=== PATIENT | male | born 1945 | race Caucasian/White ===

== ENCOUNTER → 2024-03-09 09:06 | Outpatient (CLI) | payer MEDICARE, BC, SELFPAY ==
--- NOTE | 2024-03-09 | DI.MRI.S_ITS ---
PROCEDURE: MR LUMBAR SPINE WO CON INDICATIONS: SPINAL STENOSIS, LUMBAR REGION TECHNIQUE: Noncontrast sagittal T1 spin echo and T2 fast echo, sagittal STIR, and T2 fast spin echo through the lumbar spine. In cases with scoliosis, additional coronal T2 fast spin echo may be performed. COMPARISON: Lumbosacral spine 03/01/2024. FINDINGS: Image quality: Excellent. 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 BILATERAL PARS DEFECTS AT L5. Bone Marrow: THERE IS INCREASED BONE MARROW SIGNAL THROUGHOUT THE L3 VERTEBRAL BODY, SUPERIOR ENDPLATE OF L4 AND INFERIOR ENDPLATE OF L2. NO ACUTE VERTEBRAL BODY COMPRESSION FRACTURES. Spinal Cord: CONUS MEDULLARIS TERMINATES AT THE T12 LEVEL. VISUALIZED CORD DEMONSTRATES NORMAL SIGNAL AND SIZE. Intervertebral discs: MULTILEVEL DISC DESICCATION AND DISC HEIGHT LOSS, WORSE AT L2-L3 AND L3-L4. NEAR COMPLETE HEIGHT LOSS OF THE INTERVERTEBRAL DISC AT L3-L4. Paraspinous Soft Tissues: No PARAVERTEBRAL MASSES. THERE IS A 3.6 CM T2 HYPERINTENSE MASS ARISING FROM THE INFERIOR POLE OF THE RIGHT KIDNEY. T12-L1: NO SPINAL CANAL STENOSIS OR FORAMINAL STENOSIS. LIGAMENTUM FLAVUM HYPERTROPHY AND BILATERAL FACET ARTHROPATHY. L1-L2: NO SPINAL CANAL STENOSIS OR FORAMINAL STENOSIS. LIGAMENTUM FLAVUM HYPERTROPHY AND BILATERAL FACET ARTHROPATHY. L2-L3: DORSAL DISC BULGE MILDLY EFFACES THE VENTRAL THECAL SAC. THERE IS SEVERE RIGHT FORAMINAL STENOSIS. MODERATE STENOSIS OF THE LEFT FORAMEN. LIGAMENTUM FLAVUM HYPERTROPHY AND BILATERAL FACET ARTHROPATHY. L3-L4: DORSAL DISC BULGE AND RIGHT SUBARTICULAR DISC PROTRUSION RESULTING IN MILD NARROWING OF SPINAL CANAL AND SEVERE STENOSIS OF THE RIGHT FORAMEN. MILD TO MODERATE STENOSIS OF THE LEFT FORAMEN. THERE IS LIGAMENTUM FLAVUM HYPERTROPHY AND BILATERAL FACET ARTHROPATHY. L4-L5: DORSAL DISC BULGE AND LIGAMENTUM FLAVUM HYPERTROPHY RESULT IN MILD NARROWING OF THE SPINAL CANAL. MILD TO MODERATE RIGHT FORAMINAL STENOSIS AND MODERATE TO SEVERE LEFT FORAMINAL STENOSIS. THERE IS BILATERAL FACET ARTHROPATHY. L5-S1: NO SIGNIFICANT SPINAL CANAL STENOSIS. MILD BILATERAL FORAMINAL NARROWING. THERE IS BILATERAL FACET ARTHROPATHY. IMPRESSION: 1. THERE IS A LARGE AMOUNT OF MULTILEVEL DEGENERATIVE DISC DISEASE THROUGHOUT THE LUMBAR SPINE DESCRIBED ABOVE. THE WORST LEVEL IS AT L3-L4 WHICH DEMONSTRATES SEVERE STENOSIS OF THE RIGHT FORAMEN. NO SIGNIFICANT SPINAL CANAL STENOSIS WITHIN THE LUMBAR SPINE. 2. THERE IS SEVERE DISC HEIGHT LOSS AT L2-L3 AND L3-L4 RESULTING IN BONE MARROW EDEMA THROUGHOUT THE L3 VERTEBRAL BODY, BONE MARROW EDEMA ALONG THE SUPERIOR ENDPLATE OF THE L4 VERTEBRAL BODY AND BONE MARROW EDEMA ALONG THE INFERIOR ENDPLATE OF THE L2 VERTEBRAL BODY. 3. 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 4. 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 BILATERAL PARS DEFECTS AT L5. 5. THERE IS A 3.6 CM CYSTIC MASS ARISING FROM THE INFERIOR POLE OF THE RIGHT KIDNEY. THIS MASS CAN BE FURTHER CHARACTERIZED WITH A RENAL ULTRASOUND OR MRI/CT RENAL PROTOCOL. Dictated by: Shiva Mosley M.D. on 03/09/2024 at 10:47 Approved by: Shiva Mosley M.D. on 03/09/2024 at 11:38
== END ==
PROVIDERS: Family Provider Internal Medicine; Referring Provider Physical Medicine & Rehabilitation Pain Medicine; Visit Provider Physical Medicine & Rehabilitation Pain Medicine
DX: M48.062 Spinal stenosis, lumbar region with neurogenic claudication (principal); M51.36 Other intervertebral disc degeneration, lumbar region; M47.816 Spondylosis without myelopathy or radiculopathy, lumbar region; M47.817 Spondylosis without myelopathy or radiculopathy, lumbosacral region; M41.9 Scoliosis, unspecified; N28.9 Disorder of kidney and ureter, unspecified
CPT/HCPCS: 72148

== ENCOUNTER → 2025-02-08 14:53 | Outpatient (CLI) | payer MEDICARE, BC, SELFPAY ==
--- NOTE | 2025-02-08 14:56 | DI.RAD.S_ITS ---
PROCEDURE: XR HAND RT MIN 3V INDICATIONS: RIGHT HAND PAIN TECHNIQUE: 3 views of the right hand acquired. COMPARISON: None. FINDINGS: Moderate degenerative changes at the radiocarpal, 1st carpal-metacarpal, 1st metacarpophalangeal and interphalangeal joints. Nonspecific calcifications are noted on 1 image posterior to the distal and of the 3rd middle phalanx may represent enthesophyte calcifications. Similarly there are small up to 5 millimeter calcifications adjacent to the radial styloid. No radiographic evidence of displaced fracture, dislocation or high attenuation soft tissue foreign body. IMPRESSION: Degenerative changes as discussed above. Heterotopic calcifications commonly enthesophyte or ligamentous calcifications. No radiographic evidence of displaced fracture. If symptoms persist or worsen, or there is high clinical suspicion of right hand/wrist abnormality, MRI could be performed. Dictated by: Bertrand Valentine M.D. on 02/08/2025 at 15:20 Approved by: Bertrand Valentine M.D. on 02/08/2025 at 15:25
== END ==
PROVIDERS: Family Provider Internal Medicine; Referring Provider Physical Medicine & Rehabilitation; Visit Provider Physical Medicine & Rehabilitation
DX: M19.031 Primary osteoarthritis, right wrist (principal)
CPT/HCPCS: 73130

== ENCOUNTER 2025-02-24 10:11 | Outpatient (CLI) | payer MEDICARE, BC, SELFPAY ==
[2025-02-24] VITALS (7 sets, daily range): BP systolic 153–203; BP diastolic 71–102; PULSE 64–73; RESP 11–16; TEMP 36.6; O2SAT 98–100
[2025-02-24] MEDS: MIDAZOLAM 2 MG/2 ML VIAL IV (11:36)
[2025-02-24] MEDS: DEXAMETHASONE 10 MG/ML VIAL INJ (11:44)
[2025-02-24] MEDS: BETAMETHASONE 30 MG/5 ML MDV 12 MG INJ (11:44)
[2025-02-24] MEDS: BUPIVACAINE 0.25% (PF) VIAL 2 ML INJ (11:45)
--- NOTE | 2025-02-24 12:00 | P.PCN_ITS ---
Date/Time/Diagnoses Date of procedure: 02/24/25 Time of procedure: 12:00 Pre-procedure diagnosis: 1. HNP WITH RADICULAR FEATURES, 2. MULTILEVEL CENTRAL STENOSIS, Post-procedure diagnosis: same Procedure Notes Procedure: 1. FLUOROSCOPICALLY GUIDED CONTRAST CONTROLLED INTERLAMINAR EPIDURAL STEROID INJECTION - L3/4 Indications: Antonio is referred for treatment of Bilateral Foraminal Stenosis L>R LE symptoms. Physician: Gian Sanchez Total Fluoroscopy time (seconds): 12 Total sedation minutes: 15 Complications: none Procedure in detail & Post-procedure care: FINDINGS Multilevel Central Spinal Stenosis with Nerve Root Compression DESCRIPTION OF PROCEDURE Fluoroscopically guided, contrast-controlled L3/4 translaminar epidural steroid injection. Following review of allergy and review of potential side effects and complications, including, but not necessarily limited to, infection, allergic reaction, local tissue breakdown, temporary as well as permanent nerve injury, paralysis, stroke and possible , the patient indicated that the patient understood and agreed to proceed. An informed consent document was signed by the patient, witnessed by a nurse, and placed in the patient's chart. Additionally, other treatment options including modalities, medications, and physical therapy were reviewed with the patient. After review of previous anaesthesic history and IV conscious sedation the patient was deemed safe to proceed with today?s procedure with IV conscious sedation as ASA class II designation. Safety time-out was performed to confirm patient ID, procedure to be performed and site of procedure. IV sedation was accomplished with a combination of 2mg of Versed was administered by the RN after DO order, titrated to patient comfort during the course of the procedure while the patient remained responsive to all verbal commands. In the prone position, following sterile prep and drape of the lumbar region, the L3/4 translaminar space was identified fluoroscopically. The skin was anesthetized via a 25-gauge, 1.5-inch needle with 1% lidocaine solution. At this point, a 22-gauge short bevel spinal needle was atraumatically introduced and advanced under fluoroscopic guidance into the region of the L3/4 translaminar space. Depth was confirmed on lateral view. Radiological data, including multiple fluoroscopic views of the lumbar spine, re veal a spinal needle at the L3/4 translaminar space. Lateral views then show placement of the needle in the epidural space. Subsequent views show contrast material flowing superiorly and inferiorly in the epidural space. No vascular or intrathecal uptake is observed. At this point, using loss of resistance technique with saline and air, the epidural space was entered. This was confirmed following negative aspiration with injection of approximately 1.5cc of Isovue 200, showing excellent epidural flow without vascular or intrathecal uptake. At this point, 1cc of 0.25% marcaine solution combined with 3cc or 10mg of dexamethasone and 12mg of betamethasone was injected without incident. The patient tolerated the procedure well without signs or symptoms of complications prior to transfer to the recovery area continued monitoring without incident. The patient was then transferred to the recovery area where they were observed for an appropriate period of time after the injection. The patient reported a VAS score of 7 prior to the procedure and a post- procedure VAS of 1. POST OP INSTRUCTIONS The patient was provided a Pain Log to continue to record their response to the target-specific procedure prior to follow-up visit with their referring physician. Additionally, specific post-injection care instructions and a contact number to our office were provided if concerns arise regarding possible complications associated with the procedure are suspected.
== END 2025-02-24 12:20 | disposition home or self-care (01) ==
LOC: RAD 10:12
PROVIDERS: Referring Provider Physical Medicine & Rehabilitation; Visit Provider Physical Medicine & Rehabilitation
DX: M51.16 Intervertebral disc disorders with radiculopathy, lumbar region (principal); M48.061 Spinal stenosis, lumbar region without neurogenic claudication
CPT/HCPCS: 62323; 99152; J0702; J1100; J2250

== ENCOUNTER → 2025-05-03 12:11 | Outpatient (CLI) | payer MEDICARE, BC, SELFPAY ==
--- NOTE | 2025-05-10 17:21 | DI.NM.S_ITS ---
DATE OF SERVICE: 05/03/2025 NUCLEAR CARDIOLOGY MYOCARDIAL PERFUSION STUDY PROCEDURE: Exercise stress and rest myocardial perfusion imaging study with gating to assess ejection fraction and regional wall motion. ORDERING PROVIDER: Mark Pickett MD. INDICATIONS: The patient is a 80-year-old male noted to have severe coronary artery calcification on CT scanning. CARDIAC STRESS: The patient was able to exercise for 9 minutes 17 seconds on a standard Shahriar protocol suggesting exceptional exercise capacity with an JASBIR of -60%. He had a normal heart rate response to exercise achieving a maximum heart rate of 170 bpm (120% of his predicted maximum) and a borderline hypertensive blood pressure response with a resting blood pressure of 150/90 increasing to a maximum of 200/90. He had moderate exertional dyspnea but no chest discomfort or other anginal symptoms. His resting ECG shows a right bundle-branch block with associated repolarization abnormalities but there are no significant ST-segment shifts with stress. A rare isolated PVC was noted at peak exercise and an isolated PAC noted in recovery but no complex ectopy. At 5 minutes of exercise at a heart rate of 137 bpm, 25.6 millicuries of technetium-99m Myoview was injected and he was imaged 15 minutes later using a gated SPECT acquisition protocol. He returned seven days later and was re-injected with an additional 25.2 millicuries of technetium- 99m Myoview was imaged 15 minutes later, again using a gated SPECT acquisition protocol. FINDINGS: 1. Raw data. There is good myocardial tracer uptake. The lung/heart ratio is normal at 0.23 with a normal TID ratio of 0.85. 2. Quantitated gated SPECT: Post-stress ejection fraction is 74% without any focal wall motion abnormality. Resting ejection fraction is 71% with a normal resting end-diastolic volume of 118 mL. 3. Myocardial perfusion imaging: Post-stress supine images show a normal perfusion pattern without any perfusion defects, supported by normal perfusion imaging in the prone position. The resting images show an identical perfusion pattern without any areas of improvement. IMPRESSION: 1. Normal myocardial perfusion study. 2. No evidence of myocardial ischemia or previous myocardial infarction. 3. Normal left ventricular size and systolic function without focal wall motion abnormality. 4. Excellent exercise capacity without angina or ECG evidence of ischemia but a mild hypertensive blood pressure response to exercise. He had rare isolated PACs and PVCs but no complex ectopy. Antonio Deal - RS/fn/MARLO doc#: [id number]/job#: [id number] dd: 05/10/2025 16:48:00 dt: 05/10/2025 16:54:00 DICTATING MD/COPIES TO: Gian Hawk MD; Mark Pickett MD COPIES MNE: TAO;
== END ==
LOC: NUCM 12:12
PROVIDERS: Referring Provider Nurse Practitioner Pediatrics; Visit Provider Internal Medicine Cardiovascular Disease
DX: I25.10 Atherosclerotic heart disease of native coronary artery without angina pectoris (principal); I45.10 Unspecified right bundle-branch block
CPT/HCPCS: 78452; 93017; A9502

== ENCOUNTER → 2025-05-10 | Outpatient (CLI) | payer MEDICARE, BC, SELFPAY ==
[2025-05-10 10:27] LABS: Cholesterol 226 mg/dL (140-199); HDL Cholesterol 94 mg/dL (40-60); Triglycerides 85 mg/dL (35-150)
== END ==
PROVIDERS: Referring Provider Internal Medicine Cardiovascular Disease; Visit Provider Internal Medicine Cardiovascular Disease
DX: I25.10 Atherosclerotic heart disease of native coronary artery without angina pectoris (principal); I45.10 Unspecified right bundle-branch block
CPT/HCPCS: 36415; 80061